=== PATIENT | female | born 1990 | race Two or more races ===

== ENCOUNTER 2017-03-01 14:46 | Emergency (ER) | payer MEDICAID ==
[~2017-03-01] VITALS: Ht 157.5 cm; Wt 75.0 kg
[2017-03-01] MEDS ORDERED: ASPIRIN 81MG TABLET PO STA (16:39)
[2017-03-01 16:58] LABS: BASOPHILS % 0.8 % (0.0-2.0); HEMATOCRIT. 35.9 % (36.0-48.0); HEMOGLOBIN. 11.7 g/dL (12.0-16.0); LYMPHOCYTES % 20.8 % (20.0-50.0); MEAN CORPUSCULAR HEMOGLOBIN 26.1 pg (28.0-32.0); MEAN CORPUSCULAR VOLUME 79.9 fL (81.0-99.0); MEAN PLATELET VOLUME 8.6 fl (7.4-10.4); MONOCYTES % 6.4 % (2.0-8.0); PLATELET 329 x1000/uL (130-400); RED BLOOD CELL COUNT 4.49 mill/uL (4.2-5.4); RED CELL DISTRIBUTION WIDTH 15.5 % (11.6-14.6)
[2017-03-01] MEDS: NITROGLYCERIN 0.4MG TABLET SL SL PRN ×2 (17:04→17:11)
[2017-03-01 17:08] LABS: D-DIMER < 0.19 mg/L FEU (<0.50); PARTIAL THROMBOPLASTIN TIME 24.6 sec (24.0-34.0); PROTHROMBIN TIME 10.7 sec
[2017-03-01 17:14] LABS: CARBON DIOXIDE 26 mEq/L (21-32); CHLORIDE 105 mEq/L (98-107); TROPONIN I 0.02 ng/mL (0.00-0.04)
[2017-03-01 17:21] LABS: HCG SCREEN NEGATIVE
[2017-03-01 19:41] VITALS: BP 141/71
== END 2017-03-01 19:43 | disposition home or self-care (01) ==
LOC: ER 16:36
DX: R07.9 Chest pain, unspecified (principal); M54.2 Cervicalgia
CPT/HCPCS: 36415; 71010; 80048; 84484; 84703; 85025; 85379; 85610; 85730; 93005; 99285; Z7610

== ENCOUNTER 2018-06-11 21:31 | Emergency (ER) | payer MEDICAID ==
[~2018-06-11] VITALS: Ht 162.6 cm; Wt 83.0 kg
[2018-06-11] MEDS ORDERED: SODIUM CHLORIDE 0.9% 1,000 ML IV ONE (22:13)
[2018-06-11] MEDS ORDERED: KETOROLAC 30MG/ML VIAL IV STA (22:13)
[2018-06-11 23:00] LABS: BASOPHILS % 0.5 % (0.0-2.0); EOSINOPHILS % 2.8 % (0.0-5.0); HEMATOCRIT. 36.2 % (36.0-48.0); LYMPHOCYTES % 22.7 % (20.0-50.0); MEAN CORPUSCULAR HEMOGLOBIN 28.6 pg (28.0-32.0); MEAN PLATELET VOLUME 10.3 fl (7.4-10.4); PLATELET 262 x1000/uL (130-400); RED BLOOD CELL COUNT 4.21 mill/uL (4.2-5.4); RED CELL DISTRIBUTION WIDTH 13.5 % (11.6-14.6)
[2018-06-11 23:02] LABS: HCG SCREEN NEGATIVE
[2018-06-11 23:06] LABS: CHLORIDE 107 mEq/L (98-107)
[2018-06-11 23:07] LABS: PARTIAL THROMBOPLASTIN TIME 22.6 sec (23.4-31.0)
[2018-06-11 23:16] LABS: CREATINE KINASE 75 IU/L (26-192)
[2018-06-11 23:21] LABS: CREATINE KINASE MB FRACTION < 1.0 ng/mL (0.5-3.6)
[2018-06-11] MEDS ORDERED: ASPIRIN 81MG TABLET PO ONE (23:45)
[2018-06-11 23:48] LABS: CLARITY URINE CLEAR (CLEAR); COLOR URINE YELLOW (YELLOW); KETONES URINE NEGATIVE (NEGATIVE); LEUKOCYTE ESTERASE URINE NEGATIVE (NEGATIVE); NITRITE URINE NEGATIVE (NEGATIVE); OCCULT BLOOD URINE TRACE (NEGATIVE); PROTEIN URINE NEGATIVE (NEGATIVE); SPECIFIC GRAVITY URINE 1.002 (1.005-1.030); UROBILINOGEN URINE 0.2 E.U./dL (0.2-1.0)
[2018-06-12] MEDS ORDERED: GUAIFENESIN 200MG/10ML SUGAR FREE UDC PO PRN (00:15)
[2018-06-12] MEDS ORDERED: CLONIDINE 0.1MG TABLET PO PRN (00:15)
[2018-06-12] MEDS ORDERED: IPRATROPIUM/ALBUTEROL 0.5-3(2.5)MG/3ML NEB INH PRN (00:15)
[2018-06-12] MEDS ORDERED: HYDROCODONE/ACETAMINOPHEN 5/325MG TABLET PO PRN (00:15)
[2018-06-12] MEDS ORDERED: ONDANSETRON HCL 4MG/2ML INJ IV PRN (00:15)
[2018-06-12] MEDS ORDERED: ENOXAPARIN 40MG/0.4ML SYR SUBCUT SCH (00:15)
[2018-06-12] MEDS ORDERED: ACETAMINOPHEN 325MG TABLET PO PRN (00:15)
[2018-06-12] MEDS ORDERED: MAGNESIUM/ALUMINUM HYDROXIDE/SIMETHICONE 30ML UDC PO PRN (00:15)
[2018-06-12] MEDS ORDERED: DOCUSATE SODIUM 100MG CAPSULE PO PRN (00:15)
[2018-06-12 01:35] VITALS: BP 128/70
[2018-06-12] MEDS ORDERED: ASPIRIN 81MG EC TABLET PO SCH (09:00)
[2018-06-12 13:23] LABS: *AMPHETAMINES SCREEN URINE NEGATIVE (NEGATIVE); *BENZODIAZEPINES SCREEN URINE NEGATIVE (NEGATIVE)
[2018-06-12 13:29] LABS: *COCAINE SCREEN URINE NEGATIVE (NEGATIVE); CANNABINOID URINE SCREEN NEGATIVE (NEGATIVE); METHADONE URINE SCREEN NEGATIVE (NEGATIVE); OPIATES URINE SCREEN NEGATIVE (NEGATIVE); PHENCYCLIDINE URINE SCREEN NEGATIVE (NEGATIVE)
[2018-06-12 13:52] LABS: *BARBITURATES SCREEN URINE NEGATIVE (NEGATIVE)
== END 2018-06-12 01:15 | disposition left against medical advice (07) ==
LOC: ER 21:31 → CANBEDREQ 06-12 03:31
DX: R07.89 Other chest pain (principal); M54.12 Radiculopathy, cervical region; R10.9 Unspecified abdominal pain
CPT/HCPCS: 36415; 71045; 72125; 74176; 80053; 80305; 81003; 81025; 82550; 82553; 83690; 83735; 83880; 84484; 84703; 85025; 85610; 85730; 93005; 96374; 99285; J1885; J7030

== ENCOUNTER 2020-12-04 17:27 | Emergency (ER) | payer MEDICAID ==
[~2020-12-04] VITALS: Ht 160 cm; Wt 88.6 kg
[2020-12-04 17:36] VITALS: BP 144/87
[2020-12-04] MEDS ORDERED: TOPUD PO (17:44)
[2020-12-04] MEDS ORDERED: AMOX-424 PO (17:44)
[2020-12-04] MEDS ORDERED: ACETAMINOPHEN 325MG TABLET PO ONE (17:45)
== END 2020-12-04 17:59 | disposition home or self-care (01) ==
LOC: ER 17:57
DX: H66.92 Otitis media, unspecified, left ear (principal)
CPT/HCPCS: 99282